=== PATIENT | male | born 1955 | race Caucasian/White ===

== ENCOUNTER 2020-09-07 22:07 | Inpatient (IN) | payer OTHER, SELFPAY ==
[2020-09-07] VITALS (14 sets, daily range): BP systolic 160–194; BP diastolic 89–110; PULSE 63–107; RESP 13–24; TEMP 36.4; O2SAT 91–96
--- NOTE | ~2020-09-07 | XR_ITS ---
EXAMINATION: XR chest 2V DATE: 09/07/2020 23:00 INDICATION: Midsternal chest pressure TECHNIQUE: PA and lateral views of the chest are obtained. COMPARISON: None available FINDINGS: There is a questionable opacity of the right midlung zone. Atelectasis is noted in the left lung base. There is no pleural effusion or pneumothorax. The cardiomediastinal silhouette is normal. There is mild thoracic spondylosis. IMPRESSION: 1. Possible opacity of the right midlung zone. Recommend further evaluation with CT of the chest. Reviewed, dictated and finalized at location A. IMPRESSION: 1. Possible opacity of the right midlung zone. Recommend further evaluation wit h CT of the chest.
--- NOTE | 2020-09-07 22:08 | ECG_ITS ---
Measurements Intervals [place] Rate: 102 P: 138 KS: 144 QRS: -11 QRSD: 82 T: -21 QT: 315 QTc: 410 Interpretive Statements ECTOPIC ATRIAL TACHYCARDIA POSSIBLE LEFT ATRIAL ENLARGEMENT LOW QRS VOLTAGE IN PRECORDIAL LEADS CONSIDER INFERIOR INFARCT, AGE INDETERMINATE BASELINE ARTIFACT- I, III, AVL, AVF, V1, V3-V6 ABNORMAL ECG Electronically Signed On 09-08-2020 7:31:08 CDT by Chuck Verdugo D.O.
--- NOTE | 2020-09-07 22:27 | PC.NURSE ---
pt here c significant other. reports chest pressure/pain x 15 min. after eating, that spontaneously went away on arrival in ED. reports this has happened before but no cardiology workup or known diagnosis. on monitoring manager. no s/s of distress at present.
[2020-09-07 22:33] LABS: Basophils Absolute Auto 0.1 K/mm3 (0.0-0.1); Basophils Percent Auto 0.5 % (0.2-1.2); Eosinophils Absolute Auto 0.2 K/mm3 (0-0.3); Eosinophils Percent Auto 1.8 % (0-4.4); Hematocrit 47.8 % (42.0-52.0); Hemoglobin 16.1 g/dL (14.0-18.0); Immature Granulocyte Absolute 0.05 K/mm3 (0.00-0.031); Immature Granulocyte Percent A 0.4 % (0-0.5); Lymphocytes Absolute Auto 4.94 K/mm3 (0.9-3.2); Mean Corpuscular HGB Conc 33.7 g/dl (32-36); Mean Corpuscular Hemoglobin 29.9 pg (26-34); Mean Corpuscular Volume 88.8 fl (80-100); Monocytes Absolute Auto 1.3 K/mm3 (0.1-0.6); Monocytes Percent Auto 9.8 % (2.6-8.5); Neutrophils Absolute Auto 6.4 K/mm3 (1.3-6.7); Neutrophils Percent Auto 49.5 % (45.5-73.1); Platelet Count Result 381 k/mm3 (150-375); Red Blood Count 5.38 M/mm3 (4.6-6.20); Red Cell Distribution Width 12.4 % (11.5-14.5)
[2020-09-07 22:42] LABS: INR 0.9; Prothrombin Time 12.2 Seconds (11.1-14.7)
[2020-09-07 22:43] LABS: Anion Gap 13 mmol/L (8-16); Blood Urea Nitrogen 18 mg/dL (9-20); Calcium 9.1 mg/dL (8.4-10.2); Carbon Dioxide 25 mmol/L (22-30); Chloride 104 mmol/L (98-107); Estimated CRCL calculation 62 ml/min; Estimated Glomerular Filt Rate > 60; Glucose 113 mg/dL (75-110); Sodium 142 mmol/L (137-145)
[2020-09-07 22:43] LABS: Partial Thromboplastin Time 28.6 SECONDS (22.3-36.8)
[2020-09-07 22:55] LABS: Troponin I 0.031 ng/mL (0.000-0.034)
--- NOTE | 2020-09-07 23:03 | ED.CHESTPAIN ---
HPI - Chest Pain General Chief Complaint: Chest Pain Stated Complaint: CHEST PAIN Time Seen by Provider: 09/07/20 22:32 History of Present Illness HPI narrative: Patient is a 64-year-old male who presents ER with chest pain. Reports this evening at 10 PM while leaving his brother's home he was walking to his car when he developed central chest pain/pressure without radiation. Is associated with shortness of breath. No radiation. He had to sit down for about 20 to 30 minutes to make discomfort resolved. Reports this occurred to him earlier in the day while mowing the lawn. He has had this happening intermittently over the last few months. Most recently he tried to go on a walk and cannot walk more than half block before having to stop. Symptoms are increasing in frequency, lasting longer in duration, and requiring less effort before asymptomatic. No history of heart disease. Related Data Home Medications Medication Instructions Recorded Confirmed No Home Medications 09/08/20 09/08/20 Allergies Allergy/AdvReac Type Severity Reaction Status Date / Time No Known Allergies Allergy Verified 09/07/20 22:22 Review of Systems Review of Systems: All systems reviewed & are unremarkable except as noted in HPI and below Constitutional: Constitutional: Denies chills, Denies fever(s) and Denies weakness ENT: Denies nasal congestion and Denies sore throat Cardiovascular: Cardiovascular: Reports chest pain, Denies rapid heart rate and Denies radiating jaw, neck or arm pain Respiratory: Respiratory: Denies cough, Reports dyspnea and Denies wheezing Gastrointestinal: Gastrointestinal: Denies abdominal pain, Denies nausea and Denies vomiting Musculoskeletal: Musculoskeletal: Denies back pain and Denies muscle cramps PMFSH Past Medical History Medical History (Updated 09/08/20 @ 06:53 by Yang Allen MD) COVID-19 vaccine series completed (~06/2020) Healthy adult male Surgical History Surgical History (Updated 09/07/20 @ 23:06 by Yang Allen MD) No history of previous surgery Family History Family History (Updated 09/08/20 @ 06:09 by Harriet Del Rio DO) Father Heart disease greater than 70 years old Mother Heart disease greater than 70 years old Social History Social History (Updated 09/08/20 @ 06:00 by Harriet Del Rio DO) Social History: he lives in [place] with his of 28 years. He has 2 step children. He does not have any biologic children. He works 3 different jobs. 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 He does a fair amount of traveling for his job. He smoked 1.5 packs of cigarettes per day for approximately 5-10 years but quit smoking in his 20s. He drinks 1 or 2 alcoholic beverages a week. He denies any illicit substance use. Primary care physician: Dr. Genaro Dos Santos code status: Full code surrogate decision maker: Smoking packs per day: 1.5 Smoking cigarettes per day: 30.0 Years smoked: 5 Smoking pack-years: 7.50 Smoking status: Former smoker Tobacco type: cigarettes Alcohol intake: current Drinks per week: 2 Substance use type: does not use Gender identity (if verbalized by the patient): Male Spiritual care concerns: No Exam Narrative: Exam Narrative: GENERAL: Well-appearing, well-nourished, and in no acute distress. HEAD: Normocephalic, atraumatic. CHEST: Clear to auscultation. No respiratory distress. HEART: Regular rate and rhythm. No murmur heard. Normal peripheral pulses. ABDOMEN: Soft, nontender, nondistended. EXTREMITIES: Normal range of motion. No edema. SKIN: Warm, dry, no rash. NEURO: Alert and oriented x3. PSYCH: Normal mood and affect. Course Course Emergency Course: Patient resting comfortably with no pain at this time. Significant current for acute coronary syndrome. Admit t
[2020-09-08] VITALS (22 sets, daily range): BP systolic 125–156; BP diastolic 78–97; PULSE 63–96; RESP 13–20; TEMP 36.1–36.6; O2SAT 91–99; BMI 31.8
[2020-09-08] MEDS: METOPROLOL TARTRATE 25 MG TABLET PO ×3 (00:07→21:17)
--- NOTE | 2020-09-08 01:08 | PM.IMHP ---
H&P: HPI History of Present Illness Date/Time: 09/08/20 01:08 Chief Complaint: chest pain Narrative: 64-year-old previously healthy male presents the ER with chest pain. The patient began having chest pain around 30 minutes prior to coming to the ER. He was walking to his car when he developed central chest pressure and pain. It was associated with shortness of breath. It resolved after he had sat down for approximately 20-30 minutes. the pain is pressure-like in nature in of 4/10 in severity. The patient reports that he has noticed that over the last 1.5 months so he has had multiple similar symptoms. he reports that as time has gone on it is required less activity to instigate the chest pressure. Sometimes the chest pressure is accompanied by pain radiating down the back of his left arm that is aching in nature. Earlier in the day the patient had been mowing the lawn with deep power assist push mower when he developed central chest pressure. His symptoms are occurring more frequently, With lesser exertion and lasting longer in duration. When he arrived to the ER his blood pressures were markedly elevated 194/104. However they had improved down to the 140s prior to antihypertensives being given. He has not checked his blood pressure in several years. He denies a known history of hypertension. He has not seen a physician in approximately 4 years. He is in the process of becoming established with Dr. Dos Santos. He has his 1st appointment in October. Review of Systems Review of Systems: Narrative: 12 systems were reviewed with pertinent positives and negatives per HPI. Except as documented in the HPI, all other systems were reviewed and are negative. [facility] Past Medical History Medical History (Updated 09/08/20 @ 05:54 by Harriet Del Rio DO) COVID-19 vaccine series completed (~06/2020) Healthy adult male Surgical History Surgical History (Updated 09/07/20 @ 23:06 by Yang Allen MD) No history of previous surgery Family History Family History (Updated 09/08/20 @ 01:30 by Kesha Siu RN) Father Heart disease Mother Heart disease Social History Social History (Updated 09/08/20 @ 06:00 by Harriet Del Rio DO) Social History: he lives in [place] with his of 28 years. He has 2 step children. He does not have any biologic children. He works 3 different jobs. 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 He does a fair amount of traveling for his job. He smoked 1.5 packs of cigarettes per day for approximately 5-10 years but quit smoking in his 20s. He drinks 1 or 2 alcoholic beverages a week. He denies any illicit substance use. Primary care physician: Dr. Genaro Dos Santos code status: Full code surrogate decision maker: Smoking packs per day: 1.5 Smoking cigarettes per day: 30.0 Years smoked: 5 Smoking pack-years: 7.50 Smoking status: Former smoker Tobacco type: cigarettes Alcohol intake: current Drinks per week: 2 Substance use type: does not use Gender identity (if verbalized by the patient): Male Spiritual care concerns: No Meds Home Medications and Allergies Home Medications Medication Instructions Recorded Confirmed Type No Home Medications 09/08/20 09/08/20 History Allergies Allergy/AdvReac Type Severity Reaction Status Date / Time No Known Allergies Allergy Verified 09/07/20 22:22 Vital Signs Vital Signs - 24 hr 09/07/20 22:09 09/07/20 22:20 09/07/20 22:25 Temperature 97.6 F Pulse Rate 103 H 63 105 H Respiratory Rate 18 18 Blood Pressure 194/104 H Pulse Oximetry 94 94 09/07/20 22:26 09/07/20 22:33 09/07/20 22:45 Temperature Pulse Rate 103 H 104 H Respiratory Rate 17 20 17 Blood Pressure 175/103 H Pulse Oximetry 96 91 09/07/20 22:46 09/07/20 22:58 09/07/20 23:00 Temperature Pu
--- NOTE | 2020-09-08 01:16 | ADMGEN ---
This patient, Dakotah Mata, was admitted to IMU Room 203-01. Patient/family oriented to hospital policies and general routines including ID bracelet, bed and alarms, visiting hours, pain management, procedures, bathroom and other care routines, personal items, smoking policy, room service/diet, and visiting hours. Information on how to activate the Rapid Response Team has been discussed. Patient/Family are encouraged to report perceived risks to care and to ask questions if they do not understand what they are told or what they should do. Report from Kath ESPINOSA arrived approx [phone]
--- NOTE | 2020-09-08 01:52 | PC.NURSE ---
During admission pt asked about our visitor policy and when cardiology would round. He was angry that visitor policy should not apply to him that he was going to be taking it to administration cause his should be allowed up at whatever time the doctors come through. I retold him our visitor policy and stated that if they came through when she wasn't here he welcome to call her on the phone so she could ask questions to but he was angry and aggressive through the rest of the admission process cause he would be taking this to administration.
[2020-09-08] MEDS: ENOXAPARIN 100 MG/ML SYRINGE 90 MG SUB-Q ×3 (02:58→21:16)
[2020-09-08 03:09] LABS: Cholesterol 305 mg/dL (0-200); HDL Direct 37 mg/dL
[2020-09-08 03:19] LABS: LDL Cholesterol Direct 151 mg/dL
[2020-09-08 04:06] LABS: Triglycerides 666 mg/dL (<150)
[2020-09-08] MEDS: ASPIRIN 81 MG ENTERIC TABLET PO (09:12)
[2020-09-08] MEDS: ATORVASTATIN 40 MG TABLET PO (09:12)
--- NOTE | 2020-09-08 10:31 | PM.CNCAR ---
Assessment and Plan Additional Plan 64-year-old man with: Acute coronary syndrome / non ST elevation [place] asymptomatic after about 1 hour of chest pain last evening the pain resolved without specific treatment right as he was arriving in the emergency department. For the most time being he is receiving aspirin anticoagulation beta-dharmesh and statin and seems to be quite stable. I told the patient and his the clearly he has sustained a myocardial infarction and in this situation I would recommend arranging for a coronary angiogram to be done. He understands this and I believe is generally agreeable but is expressing significant concern regarding his insurance. He is not sure but he believes his insurance does not have [facility] or the [facility] group in their network. If that is the case he is interested in transfer to a hospital that is in network. Obviously I told him that this is a situation that his telephonic case manager can clarify. If he stays at [facility] I will arrange for angiography on Wednesday since obviously this is the 08 of September holiday. If he becomes clinically unstable we can proceed urgently of course López Khan MD [facility] History of Present Illness History of Present Illness Consult date/time: 09/08/20 10:31 Consult reason: chest pain Reason For Visit: chest pain Narrative: this is a 64-year-old man that I am seeing in the hospital this morning following obvious evidence of a myocardial infarction having occurred yesterday evening. He states he has had no previous knowledge of anything being wrong with his heart and was frankly a bit surprised when I and outs the news that he had sustained a myocardial infarction. He states that he has been noticing problems or at least symptoms with exertional chest discomfort for at least 3-6 months. The discomfort was not particularly severe or alarming to him and he did not seek medical attention for this. He actually has not seen a physician for regular care and a number of years he has an appointment to see 1 of the PCP physicians in the [facility] group later in the summer but that appointment has not occurred yet. The patient states that he has noticed several more significant episodes of exertional chest discomfort in the low left last several days. He had 1 episode the day before coming in while he was mowing the lawn he states there is a significant heel on his property and pushing the more up the hill provoked some retrosternal chest pain and dyspnea which Mariano new was a concern so he stopped his activities with within a few minutes he was asymptomatic. Last evening he and his went out to dinner with some friends at their home they had a relatively large meal and after the meal they were relaxing and he began to experience similar symptoms while he was at rest. He we could tell that his friends could detect that he was in some distress he shared his symptoms he sat down on the porch in front of the house to try to get some relief of this and the symptoms were not resolving so the decision was to come to the emergency room here for evaluation. Interestingly he states soon as he arrived in the emergency room and sat in a chair he felt much better the symptoms resolved before he received any treatment and he was asymptomatic since then. His electrocardiogram was done his lab work was done in the emergency room 1st troponin levels were negative and he was admitted for further evaluation. His troponin levels have been done 4 times actually have risen significantly the last 1 was up to 14. I was then notified of the consult to come and see him. He is asymptomatic feels well and has no complaints. So far he has been receiving treatment with aspirin, Lovenox, beta-dharmesh and atorvastatin. He offers no other complaints at this time and states he has been fortunately was experiencing very good health his entire life. Review of Systems Constitutional: Constituti
--- NOTE | 2020-09-08 14:54 | PM.IMPN ---
Progress Note: A&P Assessment and Plan (1) Non-STEMI (non-ST elevated myocardial infarction): Code(s): I21.4 - Non-ST elevation (NSTEMI) myocardial infarction Status: Acute Assessment and Plan: STABLE CONTINUE TO MONITOR SUPPORTIVE CARE APPRECIATE CARDIOLOGY CONSULT Patient has been admitted to IMU with serial cardiac enzymes suggestive of non-STEMI. Patient has been started on therapeutic Lovenox, daily baby aspirin and beta-dharmesh. Cardiology has been consulted. The patient will likely need a cardiac catheterization in the near future. He is currently pain-free. Medical management has been initiated as discussed above. (2) Hypertension: Qualifiers: Hypertension type: primary hypertension Qualified Code(s): I10 - Essential (primary) hypertension Code(s): I10 - Essential (primary) hypertension Status: Acute Assessment and Plan: CONTINUE TO MONITOR I suspect the patient has previously untreated essential hypertension. Metoprolol has been initiated as discussed above. Monitor blood pressures closely. Additional Plan AWAITING INSURANCE TO [employer] PATIENT IS OUT OF NETWORK FURTHER TREATMENT MANAGEMENT UNLIKELY CARDIAC CATHETERIZATION Patient has been admitted as observation status. Subjective Date/time seen: 09/08/20 14:54 Exam Const: General: comfortable and no acute distress Other: Pleasant white male overweight comfortable cooperative in no distress. HENMT: Mouth: Yes moist mucous membranes Eyes: Sclera: sclerae normal Pupils: Equal, round and reactive pupils present Neck: Neck: supple and no JVD Thyroid: thyroid normal Other: No carotid bruits are audible normal normal carotid upstrokes Resp: Effort & Inspection: normal respiratory effort Auscultation: clear to auscultation bilaterally Cardio: Rate: regular rate Rhythm: regular rhythm Other: PMI nondisplaced and of normal activity no murmur no gallop no rub GI: Auscultation: normal bowel sounds Skin: General skin exam: normal color Neuro: Cranial nerves: Yes Equal, round and reactive pupils present Cognition (Neuro): normal cognition Extrem: General: normal to inspection Objective Data Vital Signs Vital Signs: Vital Signs - 24 hr 09/07/20 22:09 09/07/20 22:20 09/07/20 22:25 Temperature 97.6 F Pulse Rate 103 H 63 105 H Respiratory Rate 18 18 Blood Pressure 194/104 H Pulse Oximetry 94 94 09/07/20 22:26 09/07/20 22:33 09/07/20 22:45 Temperature Pulse Rate 103 H 104 H Respiratory Rate 17 20 17 Blood Pressure 175/103 H Pulse Oximetry 96 91 09/07/20 22:46 09/07/20 22:58 09/07/20 23:00 Temperature Pulse Rate 103 H 107 H Respiratory Rate 16 19 15 Blood Pressure 160/98 H 162/91 H Pulse Oximetry 95 95 92 09/07/20 23:01 09/07/20 23:21 09/07/20 23:33 Temperature Pulse Rate 107 H 102 H 100 Respiratory Rate 21 H 13 20 Blood Pressure 160/89 H Pulse Oximetry 93 94 93 09/07/20 23:46 09/07/20 23:48 09/08/20 00:00 Temperature Pulse Rate 102 H 103 H 94 Respiratory Rate 22 H 24 H 16 Blood Pressure 181/110 H Pulse Oximetry 92 94 91 09/08/20 00:07 09/08/20 00:15 09/08/20 00:16 Temperature Pulse Rate 96 93 93 Respiratory Rate 15 13 Blood Pressure 144/94 H Pulse Oximetry 95 94 09/08/20 00:57 09/08/20 01:05 09/08/20 02:00 Temperature 97.3 F L Pulse Rate 90 90 74 Respiratory Rate 18 18 Blood Pressure 138/87 156/97 H Pulse Oximetry 96 97 09/08/20 04:00 09/08/20 06:00 09/08/20 08:00 Temperature 97.9 F 97.4 F L Pulse Rate 76 71 75 Respiratory Rate 20 18 Blood Pressure 143/92 H 149/88 H Pulse Oximetry 99 98 09/08/20 10:00 09/08/20 12:00 09/08/20 12:05 Temperature 97.0 F L Pulse Rate 90 80 74 Respiratory Rate 20 Blood Pressure 143/94 H Pulse Oximetry 97 Intake/Output Intake/Output: Intake & Output 09/05/20 09/06/20
--- NOTE | 2020-09-08 15:41 | PC.NURSE ---
[facility] flyer was given to patient in cardiac admissions folder.
[2020-09-09] VITALS (15 sets, daily range): BP systolic 120–145; BP diastolic 59–89; PULSE 58–84; RESP 16–18; TEMP 36.1–36.6; O2SAT 95–100
[2020-09-09] MEDS: ATORVASTATIN 40 MG TABLET PO (09:15)
[2020-09-09] MEDS: ASPIRIN 81 MG ENTERIC TABLET PO (09:15)
[2020-09-09] MEDS: METOPROLOL TARTRATE 25 MG TABLET PO ×2 (09:15→21:11)
[2020-09-09] MEDS: ENOXAPARIN 100 MG/ML SYRINGE 90 MG SUB-Q ×2 (09:15→21:12)
--- NOTE | 2020-09-09 11:11 | PM.IMPN ---
Progress Note: A&P Assessment and Plan (1) Non-STEMI (non-ST elevated myocardial infarction): Code(s): I21.4 - Non-ST elevation (NSTEMI) myocardial infarction Status: Acute Assessment and Plan: STABLE CONTINUE TO MONITOR SUPPORTIVE CARE APPRECIATE CARDIOLOGY CONSULT Patient has been admitted to IMU with serial cardiac enzymes suggestive of non-STEMI. Patient has been started on therapeutic Lovenox, daily baby aspirin and beta-dharmesh. Cardiology has been consulted. The patient will likely need a cardiac catheterization in the near future. He is currently pain-free. Medical management has been initiated as discussed above. (2) Hypertension: Qualifiers: Hypertension type: primary hypertension Qualified Code(s): I10 - Essential (primary) hypertension Code(s): I10 - Essential (primary) hypertension Status: Acute Assessment and Plan: CONTINUE TO MONITOR I suspect the patient has previously untreated essential hypertension. Metoprolol has been initiated as discussed above. Monitor blood pressures closely. Additional Plan AWAITING INSURANCE TO [employer] PATIENT IS OUT OF NETWORK FURTHER TREATMENT MANAGEMENT UNLIKELY CARDIAC CATHETERIZATION Patient has been admitted as observation status. Subjective Date/time seen: 09/09/20 11:11 I FEEL WELL Review of Systems Constitutional: Constitutional: Denies chills and Denies fever(s) Eyes: Eyes: Denies change in vision ENT: Denies dizziness, Denies nasal congestion, Denies nasal discharge and Denies nasal obstruction Cardiovascular: Cardiovascular: Reports chest pain, Denies lightheadedness, Reports radiating jaw, neck or arm pain, Denies palpitations and Denies dyspnea Respiratory: Respiratory: Denies cough Gastrointestinal: Gastrointestinal: Denies diarrhea and Denies vomiting Genitourinary: Genitourinary: Reports no additional male genitourinary complaints Musculoskeletal: Musculoskeletal: Reports no additional musculoskeletal complaints Integumentary/Breasts: Skin/Breast: Reports system reviewed and no additional complaints, except as docu Neurologic: Reports system reviewed and no additional complaints, except as documented Psychiatric: Psychiatric: Reports no additional psychiatric complaints Endocrine: Endocrine: Reports no additional endocrine complaints Hematologic/Lymphatic: Hematologic/Lymphatic: Reports no additional hematologic/lymphatic complaints Allergic/Immunologic: Allergic/Immunologic: Reports no additional allergic/immunologic complaints Exam Const: General: comfortable and no acute distress Nutritional Appearance: average body habitus Orientation/consciousness: patient oriented x3 Other: Pleasant white male overweight comfortable cooperative in no distress. HENMT: Head: normal to inspection, normocephalic and atraumatic Ears: hearing grossly normal bilaterally Face and sinus: normal facial exam Mouth: Yes moist mucous membranes Eyes: General: appearance normal, both eyes and all related structures Sclera: sclerae normal Pupils: Equal, round and reactive pupils present EOM: EOMs intact bilaterally Neck: Neck: supple and no JVD Thyroid: thyroid normal Lymphatic: no lymphadenopathy noted Other: No carotid bruits are audible normal normal carotid upstrokes Resp: Effort & Inspection: normal respiratory effort Auscultation: clear to auscultation bilaterally Cardio: Jugular venous distension: no JVD Rate: regular rate Rhythm: regular rhythm Heart sounds: S1 normal heart sound present and S2 normal heart sound present Other: PMI nondisplaced and of normal activity no murmur no gallop no rub GI: GI Palp: Yes Soft to palpation and Yes No hepatosplenomegaly present Auscultation: normal bowel sounds : General: Yes deferred Skin: General skin exam: normal color Rashes: no rashes Wounds: no wounds Neuro: General:
--- NOTE | 2020-09-09 11:39 | PM.PNCARD ---
Progress Note: A&P Additional Plan 64-year-old man with non ST elevation [place] stable on medical therapy. anticipate left heart catheterization tomorrow and further recommendations following those results López Khan MD [facility] Subjective Date/time seen: date of service:09/09/20 11:39 Interval history: Follow-up visit in this 64-year-old man with: Coronary artery disease presenting with acute coronary syndrome / non ST elevation [place]. Patient did have history of recent onset of exertional anginal-type symptoms for a month or 2 prior to this event. He is clinically stable following admission on simple medical therapy. plans are in place for coronary angiography tomorrow morning. Exam Const: General: comfortable and no acute distress Other: Well-developed well-nourished gentleman a pleasant comfortable cooperative no apparent distress of any kind HENMT: Mouth: Yes moist mucous membranes Eyes: Sclera: sclerae normal Pupils: Equal, round and reactive pupils present Neck: Neck: supple and no JVD Resp: Effort & Inspection: normal respiratory effort Auscultation: clear to auscultation bilaterally Cardio: Rate: regular rate Rhythm: regular rhythm Other: no murmur no gallop GI: GI Palp: Yes Soft to palpation Auscultation: normal bowel sounds Neuro: Cognition (Neuro): normal cognition Extrem: General: normal to inspection Objective Data Vital Signs Vital Signs: Vital Signs - 24 hr 09/08/20 12:00 09/08/20 12:05 09/08/20 14:00 Temperature 36.1 C L Pulse Rate 80 74 71 Respiratory Rate 20 Blood Pressure 143/94 H Pulse Oximetry 97 09/08/20 16:00 09/08/20 17:25 09/08/20 18:00 Temperature 36.1 C L Pulse Rate 73 71 80 Respiratory Rate 20 Blood Pressure 125/78 Pulse Oximetry 97 09/08/20 19:52 09/08/20 20:00 09/08/20 21:17 Temperature 36.2 C L Pulse Rate 79 72 73 Respiratory Rate 18 Blood Pressure 142/81 H Pulse Oximetry 98 09/08/20 22:00 09/08/20 23:22 09/09/20 00:00 Temperature 36.3 C L Pulse Rate 64 63 58 L Respiratory Rate 20 Blood Pressure 135/88 Pulse Oximetry 99 09/09/20 02:00 09/09/20 04:00 09/09/20 06:00 Temperature 36.4 C Pulse Rate 60 61 58 L Respiratory Rate 18 Blood Pressure 135/69 Pulse Oximetry 100 09/09/20 08:00 09/09/20 09:15 09/09/20 10:00 Temperature 36.2 C L Pulse Rate 80 68 67 Respiratory Rate 16 Blood Pressure 136/89 Pulse Oximetry 96 Intake/Output Intake/Output: Intake & Output 09/06/20 09/07/20 09/08/20 09/09/20 23:59 23:59 23:59 23:59 Intake Total 600 360 Output Total 300 Balance 300 360 Meds/Results Medications: Active Medications Generic Name Dose Route Start Last Admin Trade Name Freq PRN Reason Stop Dose Admin Acetaminophen 650 mg 09/07/20 23:33 Acetaminophen 325 Mg Tablet PO Q4H PRN Mild Pain (1-3) or Fever Hydrocodone Bitart/Acetaminophen 1 tab 09/07/20 23:33 Hydrocodone/Acetaminophen (*Crx) 5-325 Mg Tablet PO Q4H PRN Pain Rated 4-6 Aspirin 81 mg 09/08/20 09:00 09/09/20 09:15 Aspirin 81 Mg Enteric Tablet PO 81 mg QAM FLYNN Administration Atorvastatin Calcium 40 mg 09/08/20 09:00 09/09/20 09:15 Atorvastatin 40 Mg Tablet PO 40 mg DAILY FLYNN Administration Enoxaparin Sodium 90 mg 09/08/20 02:50 09/09/20 09:15 Enoxaparin 100 Mg/Ml Syringe SUB-Q 90 mg Q12HR FLYNN Administration Metoprolol Tartrate 25 mg 09/08/20 09:00 09/09/20 09:15 Metoprolol Tartrate 25 Mg Tablet PO 25 mg Q12HR FLYNN Administration Morphine Sulfate 4 mg 09/07/20 23:33 Morphine Sulfate (*Crx) 4 Mg/Ml Inj IV PUSH Q2H PRN Pain Rated 7-10 Ondansetron HCl 4 mg 09/07/20 23:33 Ondansetron Inj 4 Mg/2 Ml Vial IV PUSH Q4H PRN Nausea Radiology Results: ITS Impressions Chest X-Ray 09/08/20 08:24 IMPRESSION: 1. Possible opacity of the right midlung zone. Recommend further evaluation with CT
[2020-09-10] VITALS (25 sets, daily range): BP systolic 116–144; BP diastolic 66–93; PULSE 58–97; RESP 13–18; TEMP 35.9–37; O2SAT 94–99
[2020-09-10] MEDS: ASPIRIN 81 MG ENTERIC TABLET PO (08:20)
[2020-09-10] MEDS: METOPROLOL TARTRATE 25 MG TABLET PO ×2 (08:20→20:13)
[2020-09-10] MEDS: ATORVASTATIN 40 MG TABLET PO (08:20)
--- NOTE | 2020-09-10 08:26 | WPDMODSED ---
Moderate Sedation Note-Pt Data Patient Data Diagnosis: non ST-elevation [place] Present Complaint: this is a 64-year-old man who came to the hospital with a several month history of exertional anginal-type symptoms. This culminated in a severe episode of chest pain that was associated with a significant troponin rise to 14. ECG did not show any diagnostic changes. In this setting an angiogram has been recommended. Procedure to be performed/Plan: Left heart catheterization Allergies Allergy/AdvReac Type Severity Reaction Status Date / Time No Known Allergies Allergy Verified 09/07/20 22:22 Home Medications Medication Instructions Recorded Confirmed Type No Home Medications 09/08/20 09/08/20 History Current Medications: Active Medications Acetaminophen (Acetaminophen 325 Mg Tablet) 650 mg PO Q4H PRN PRN Reason: Mild Pain (1-3) or Fever Hydrocodone Bitart/Acetaminophen (Hydrocodone/Acetaminophen (*Crx) 5-325 Mg Tablet) 1 tab PO Q4H PRN PRN Reason: Pain Rated 4-6 Aspirin (Aspirin 81 Mg Enteric Tablet) 81 mg PO QAM [facility] Last Admin: 09/10/20 08:20 Dose: 81 mg Documented by: Atorvastatin Calcium (Atorvastatin 40 Mg Tablet) 40 mg PO DAILY [facility] Last Admin: 09/10/20 08:20 Dose: 40 mg Documented by: Enoxaparin Sodium (Enoxaparin 100 Mg/Ml Syringe) 90 mg SUB-Q Q12HR [facility] Last Admin: 09/09/20 21:12 Dose: 90 mg Documented by: Metoprolol Tartrate (Metoprolol Tartrate 25 Mg Tablet) 25 mg PO Q12HR [facility] Last Admin: 09/10/20 08:20 Dose: 25 mg Documented by: Morphine Sulfate (Morphine Sulfate (*Crx) 4 Mg/Ml Inj) 4 mg IV PUSH Q2H PRN PRN Reason: Pain Rated 7-10 Ondansetron HCl (Ondansetron Inj 4 Mg/2 Ml Vial) 4 mg IV PUSH Q4H PRN PRN Reason: Nausea Sedation/Anesthesia: No previous sedation/anesthesia problems (including family history). [facility] Past Medical History Medical History (Updated 09/08/20 @ 06:53 by Yang Allen MD) COVID-19 vaccine series completed (~06/2020) Healthy adult male Surgical History Surgical History (Updated 09/07/20 @ 23:06 by Yang Allen MD) No history of previous surgery Family History Family History (Updated 09/08/20 @ 06:09 by Harriet Del Rio DO) Father Heart disease greater than 70 years old Mother Heart disease greater than 70 years old Social History Social History (Updated 09/08/20 @ 06:00 by Harriet Del Rio DO) Social History: he lives in [place] with his of 28 years. He has 2 step children. He does not have any biologic children. He works 3 different jobs. 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 He does a fair amount of traveling for his job. He smoked 1.5 packs of cigarettes per day for approximately 5-10 years but quit smoking in his 20s. He drinks 1 or 2 alcoholic beverages a week. He denies any illicit substance use. Primary care physician: Dr. Genaro Dos Santos code status: Full code surrogate decision maker: Smoking packs per day: 1.5 Smoking cigarettes per day: 30.0 Years smoked: 5 Smoking pack-years: 7.50 Smoking status: Former smoker Tobacco type: cigarettes Alcohol intake: current Drinks per week: 2 Substance use type: does not use Gender identity (if verbalized by the patient): Male Spiritual care concerns: No Mod Sed Physical Exam Physical Exam Pre Procedural Exam: Normal: Neck, Throat, Airway, Lungs, Heart Size, Heart Rate, Heart Rhythm, Neuro Exam and Extremities and Variation: Appearance ( pleasant overweight gentleman no distress) Hours since solid foods: 12 Hours since liquid intake: 12 Mallampati Classification: class II Internal Medicine - PN: Obj Da Vital Signs Vital Signs: Vital Signs - 24 hr 09/09/20 09:15 09/09/20 10:00 09/09/20 12:00 Temperature 36.6 C Pulse Rate 68 67 64 Respiratory Rate 16 Blood Pressure 128/85 Pulse Oxime
--- NOTE | 2020-09-10 09:08 | WPDCARDPROC ---
Cardiac Cath Procedure Note Date of procedure:: 09/10/20 Performing physician:: López Khan MD Indication:: acute coronary syndrome/ non ST elevation [place] Brief clinical history:: this is a 64-year-old man who presented over the weekend with a 2 to three-month history of exertional chest culminating some severe pain that occurred at rest following eating a large meal. He presented to the emergency room where he was rendered pain-free by aspirin, nitrates and anticoagulation. Troponin rise did go up 14. There were no diagnostic ECG changes. In this setting an angiogram has been recommended. Procedure Procedure performed:: Coronary angiography left ventriculography Angio-Seal to right femoral artery Sedation/Medication given:: fentanyl 50 mg Versed 2 mg case start 845 a.m. case end time 9:03 a.m. sedation provided by Arielle Walker RN, trained observer Access site:: right femoral artery Estimated blood loss:: 10-15 cc Procedure note:: patient was brought to the cardiac catheterization lab in the postabsorptive state the right femoral triangle was prepared and draped in the normal fashion. Anesthesia was provided with 1% lidocaine infiltrated locally. The femoral artery was then punctured and modified Seldinger technique and a 5 Frisian vascular sheath was placed. Left heart catheterization was then carried out. I 1st used a 5 Frisian angled pigtail catheter to study left-sided hemodynamics and injected LV g in the MCCOY projection. After this the pigtail catheter was withdrawn and replaced with a 5 Frisian FL4 catheter which was used to engage and inject the left coronary artery in multiple projections. Following this a 5 Frisian JR4 catheter was used to engage and inject the right coronary artery. The cine angiograms were then reviewed and the case was terminated. An angiogram was done of the femoral artery through the sheath after which an Angio-Seal device was deployed with a good hemostatic result. 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 Findings:: Hemodynamics: Central aortic pressure is 142 over 76 left ventricle 140 over 0 end-diastolic is 8 there is no gradient on pullback across the aortic valve. Left ventricle: The LV is normal in size wall of the left ventricle is severely hypodynamic to nearly akinetic the remainder of the LV contracts well the global ejection fraction appears to be 50-55%. The left main coronary artery is medium in caliber and significantly calcified. There appears to be an eccentric distal left main stenosis which to the not seen at all in some projections and in the WELSH projections appears to be about 60-70% distal left main soon stenosis. The left anterior descending is a medium caliber artery extending down to the apex the proximal near ostial segment of the LAD is 99% occluded with SHAUNA 2 flow distal to this. Distally the LAD appears to be a fairly large caliber vessel. The circumflex is a large caliber vessel giving rise to the marginal branches. The proximal circumflex has a 90% stenosis at or near the origin of a large 1st OM branch. The remainder of the circumflex has mild plaquing but no high-grade lesions are seen. The right coronary artery is dominant to the posterior circulation there appears to be total occlusion of the proximal RCA with bridging antegrade collaterals. These antegrade collaterals provide SHAUNA 1 flow into the distal right coronary artery. The the right coronary also receives left to right collateral filling via the LAD through the septals. Conclusion:: 1. Severe multivessel coronary disease with calcified left main which appears to have an eccentric a distal 60-70% stenosis. 2. Subtotal 99% stenosis of the proximal LAD 3. high-grade proximal 90% circumflex lesion 4. high-grade proximal RCA lesion which I believe is a chronic total occlusion with anteg
[2020-09-10] MEDS: SODIUM CHLORIDE 0.9% IV 1,000 ML 125 ML IV CONT (10:21)
--- NOTE | 2020-09-10 10:23 | SUR.PHASEII ---
Patient transported back to rm 203 via bed. PETTY RN and JESÚS Isbell assessed patient's groin and peripheral pulse together at bedside. Patient and updated on plan of care and verbalize understanding.
--- NOTE | 2020-09-10 12:36 | PM.TDS ---
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 Anticipated date of transfer: 09/10/20 DS: Admitting Diagnosis Admitting Diagnosis Admitting Diagnosis: (1) Non-STEMI (non-ST elevated myocardial infarction): Code(s): I21.4 - Non-ST elevation (NSTEMI) myocardial infarction Status: Acute Assessment and Plan: Patient has been admitted to IMU with serial cardiac enzymes suggestive of non-STEMI. Patient has been started on therapeutic Lovenox, daily baby aspirin and beta-dharmesh. Cardiology has been consulted. The patient will likelyneed a cardiac catheterization in the near future. He is currently pain-free. Medical management has been initiated as discussed above. (2) Hypertension: Qualifiers: Hypertension type: primary hypertension Qualified Code(s): I10 - Essential (primary) hypertension Code(s): I10 - Essential (primary) hypertension Status: Acute Assessment and Plan: I suspect the patient has previously untreated essential hypertension. Metoprolol has been initiated as discussed above. Monitor blood pressures closely. DS: Discharge Diagnosis Discharge Diagnosis (1) Non-STEMI (non-ST elevated myocardial infarction): Code(s): I21.4 - Non-ST elevation (NSTEMI) myocardial infarction Status: Acute Assessment and Plan: STABLE CONTINUE TO MONITOR SUPPORTIVE CARE APPRECIATE CARDIOLOGY CONSULT Patient has been admitted to IMU with serial cardiac enzymes suggestive of non-STEMI. Patient has been started on therapeutic Lovenox, daily baby aspirin and beta-dharmesh. Cardiology has been consulted. The patient will likely need a cardiac catheterization in the near future. He is currently pain-free. Medical management has been initiated as discussed above. (2) Hypertension: Qualifiers: Hypertension type: primary hypertension Qualified Code(s): I10 - Essential (primary) hypertension Code(s): I10 - Essential (primary) hypertension Status: Acute Assessment and Plan: CONTINUE TO MONITOR I suspect the patient has previously untreated essential hypertension. Metoprolol has been initiated as discussed above. Monitor blood pressures closely. Transfer Discharge Sum: Med Medications Active and Home Medications: Home Medications No Home Medications 09/08/20 [History Confirmed 09/08/20] Active Medications Acetaminophen (Acetaminophen 325 Mg Tablet) 650 mg PO Q4H PRN PRN Reason: Mild Pain (1-3) or Fever Hydrocodone Bitart/Acetaminophen (Hydrocodone/Acetaminophen (*Crx) 5-325 Mg Tablet) 1 tab PO Q4H PRN PRN Reason: Pain Rated 4-6 Aspirin (Aspirin 81 Mg Enteric Tablet) 81 mg PO QAM [facility] Last Admin: 09/10/20 08:20 Dose: 81 mg Documented by: Atorvastatin Calcium (Atorvastatin 40 Mg Tablet) 40 mg PO DAILY [facility] Last Admin: 09/10/20 08:20 Dose: 40 mg Documented by: Heparin Sodium (Porcine) (Heparin Sodium 5,000 Units/Ml Vial) 0 units IV PUSH PRN PRN PRN Reason: aPTT less than 55 seconds Heparin Sodium (Porcine) (Heparin Sodium 5,000 Units/Ml Vial) 0 units IV PUSH PRN PRN PRN Reason: aPTT 55 - 70 seconds Heparin Sodium (Porcine) (Heparin Sodium 5,000 Units/Ml Vial) 4,000 units IV PUSH ONCE ONE Stop: 09/10/20 12:28 Sodium Chloride (Normal Saline Iv) 1,000 mls @ 125 mls/hr IV CONT .Q8H ONE Stop: 09/10/20 17:05 Last Admin: 09/10/20 10:21 Dose: 125 mls/hr Documented by: Heparin Sodium/Dextrose (Heparin Sodium/D5w 100 Units/Ml) 25,00
[2020-09-10 13:11] LABS: Basophils Percent Auto 0.5 % (0.2-1.2); Eosinophils Absolute Auto 0.1 K/mm3 (0-0.3); Eosinophils Percent Auto 1.1 % (0-4.4); Hematocrit 45.7 % (42.0-52.0); Immature Granulocyte Absolute 0.04 K/mm3 (0.00-0.031); Immature Granulocyte Percent A 0.5 % (0-0.5); Lymphocytes Percent Auto 29.6 % (18.3-44.2); Mean Corpuscular HGB Conc 32.8 g/dl (32-36); Mean Corpuscular Hemoglobin 29.4 pg (26-34); Mean Corpuscular Volume 89.4 fl (80-100); Mean Platelet Volume 9.9 fl (7.4-10.4); Monocytes Absolute Auto 0.7 K/mm3 (0.1-0.6); Monocytes Percent Auto 8.7 % (2.6-8.5); Neutrophils Absolute Auto 5.1 K/mm3 (1.3-6.7); Neutrophils Percent Auto 59.6 % (45.5-73.1); Platelet Count Result 336 k/mm3 (150-375); Red Blood Count 5.11 M/mm3 (4.6-6.20); Red Cell Distribution Width 12.3 % (11.5-14.5); White Blood Count 8.5 K/mm3 (4.5-10.0)
[2020-09-10 13:23] LABS: INR 0.9; Partial Thromboplastin Time 30.1 SECONDS (22.3-36.8); Prothrombin Time 12.2 Seconds (11.1-14.7)
[2020-09-10] MEDS: HEPARIN SODIUM 5,000 UNITS/ML VIAL 4000 UNITS IV PUSH ×2 (13:34→20:13)
[2020-09-10] MEDS: HEPARIN SOD/D5W 100 UNITS/ML 25,000 UNITS/250 ML BAG 9 UNITS IV CONT (13:35)
[2020-09-10 20:03] LABS: Partial Thromboplastin Time 41.9 SECONDS (22.3-36.8)
[2020-09-10] MEDS: ACETAMINOPHEN 325 MG TABLET 650 MG PO (20:12)
[2020-09-11] VITALS: BP 140/98; PULSE 65; PULSE 70; RESP 20; TEMP 36.6; O2SAT 98
--- NOTE | 2020-09-11 01:46 | PC.NURSE ---
Pt left with Flite at approx 0130. notified and U nurse mary called
== END 2020-09-11 01:30 | disposition short-term general hospital (02) | DRG 282 ==
LOC: ANHED 22:46 → ANHIMU 23:44
PROVIDERS: Nurse Practitioner; Specialist; Admitting Provider Internal Medicine; Emergency Provider Emergency Medicine; Visit Provider Internal Medicine
PROC: 4A023N7 Measurement of Cardiac Sampling and Pressure, Left Heart, Percutaneous Approach (ICD-10-PCS; CPT 93452; principal; 2020-09-10 09:00)
PROC: 4A023N7 Measurement of Cardiac Sampling and Pressure, Left Heart, Percutaneous Approach (ICD-10-PCS; 2020-09-10 09:00)
DX: I21.4 Non-ST elevation (NSTEMI) myocardial infarction (principal); I25.10 Atherosclerotic heart disease of native coronary artery without angina pectoris; I10 Essential (primary) hypertension; Z87.891 Personal history of nicotine dependence
CPT/HCPCS: 36415; 71046; 80048; 80061; 84484; 85025; 85610; 85730; 93005; 93458; 96372; 99285; A9270; C1760; C1887; C1894; G0269; G0378; J1644; J1650; J2250; J3010; J7030; J7040

== ENCOUNTER → 2020-12-24 05:52 | Outpatient (CLI) | payer OTHER, SELFPAY ==
[2020-12-25 19:26] LABS: SARS-CoV-2 RNA PCR Negative
== END ==
PROVIDERS: PCP Family Medicine; Visit Provider Nurse Practitioner Family
DX: Z20.822 Contact with and (suspected) exposure to COVID-19 (principal); R05.9 Cough, unspecified
CPT/HCPCS: C9803; U0003; U0005

== ENCOUNTER 2021-02-27 16:30 | Outpatient (RCR) | payer OTHER, SELFPAY ==
[2020-11-19 08:56] VITALS: PULSE 68
--- NOTE | 2020-11-25 10:04 | PCCPR ---
Absent Wes will be out of town for a [place] of [place] 11/27/20-12/04/20.
--- NOTE | 2020-12-23 07:53 | PCCPR ---
Absent today, not feeling well.
--- NOTE | 2020-12-24 13:56 | PCCPR ---
Wes called today, he is not feeling well and running a fever. He was COVID tested today and will be out the rest of the week and maybe out next week, depending on his results.
--- NOTE | 2021-01-08 07:32 | PCCPR ---
Pt balwinder, still traveling today and plans to return 01/09.
--- NOTE | 2021-02-10 18:54 | PCCPR ---
Extended Wes's dc date Wes had a delayed start in [facility] He was on visit 25 today and wanted to end before Jenaro. Dc date revised to 02/27/21.
== END 2021-02-27 17:35 | disposition home or self-care (01) ==
LOC: ANHCPREHAB 16:30
PROVIDERS: PCP Family Medicine
DX: Z95.1 Presence of aortocoronary bypass graft (principal)
CPT/HCPCS: 93798

== ENCOUNTER 2022-02-24 08:43 | Outpatient (CLI) | payer MEDICARE, SELFPAY ==
--- NOTE | ~2022-02-24 | US_ITS ---
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 History of myocardial infarction. Smoking history. TECHNIQUE: Grayscale, color Doppler, and pulsed Doppler images of the aorta and common iliac arteries were obtained. COMPARISON: None. FINDINGS: The proximal aorta measures 2.6 cm greatest sagittal dimension. The mid aorta measures 2.2 cm greates t sagittal dimension. The distal aorta measures 2.2 cm greatest sagittal dimension. The right common internal iliac artery measures 10 mm. The left common iliac artery measures 11 mm. IMPRESSION: 1. Normal caliber aorta without aneurysm. Reviewed, dictated and finalized at location A. AMATION WORKER
== END 2022-02-24 08:44 | disposition home or self-care (01) ==
PROVIDERS: PCP Family Medicine; Visit Provider Family Medicine
DX: Z13.6 Encounter for screening for cardiovascular disorders (principal)
CPT/HCPCS: 76706

== ENCOUNTER 2022-10-29 00:32 | Day surgery (SDC) | payer MEDICARE, SELFPAY ==
[2022-10-16 08:43] VITALS: BMI 31.3
[2022-10-29 11:03] VITALS: BP 151/96; PULSE 86; RESP 16; TEMP 36.4; O2SAT 100
[2022-10-29] MEDS: LACTATED RINGERS 1,000 ML 150 ML IV CONT (11:11)
--- NOTE | 2022-10-29 11:16 | WPDANESEPPF ---
Anes - Initial Pre Proc Eval Procedure: Operation Date: 10/29/22 12:30 Proposed Procedures p Colonoscopy - Noah Christianson MD Date/Time: 10/29/22 11:16 Surgeon: Noah Christianson MD Pre Op Diagnosis: other fecal abnormalities Patient Data Age: 66 Gender: M Height: 1.68 m Weight: 85.8 kg Last Vital Signs Temp 36.4 C L 10/29/22 11:03 Pulse 86 10/29/22 11:03 Resp 16 10/29/22 11:03 BP 151/96 H 10/29/22 11:03 Pulse Ox 100 10/29/22 11:03 O2 Del Method Room Air 10/29/22 11:03 Allergies Allergy/AdvReac Type Severity Reaction Status Date / Time No Known Allergies Allergy Verified 10/29/22 11:00 Home Medications Medication Instructions Recorded Confirmed Type aspirin 81 mg tablet,delayed 81 mg PO DAILY 10/21/20 10/29/22 History release metoprolol succinate 100 mg 100 mg PO DAILY 11/19/20 10/29/22 History tablet,extended release 24 hr atorvastatin 80 mg tablet 80 mg PO DAILY #30 tabs 07/31/21 10/29/22 Rx lisinopril 5 mg tablet 5 mg PO DAILY #90 tabs 10/19/22 10/29/22 Rx Patient hx anesthesia problems: none Family hx anesthesia problems: none Results Review: All pre-operative results and documents have been reviewed as part of the pre-operative evaluation. [facility] Past Medical History Medical History (Updated 10/16/22 @ 15:00 by Genaro Dos Santos MD) CAD (coronary artery disease) COVID-19 vaccine series completed (~06/2020) Healthy adult male HLD (hyperlipidemia) Obesity Old [place] (myocardial infarction) Positive colorectal cancer screening using Cologuard test Surgical History Surgical History No history of previous surgery S/P CABG (coronary artery bypass graft) Family History Family History Father Heart disease greater than 70 years old Heart attack High cholesterol Mother Heart disease greater than 70 years old Cancer High cholesterol Social History Social History Social History: he lives in [place] with his of 28 years. He has 2 step children. He does not have any biologic children. He works 3 different jobs. 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 He does a fair amount of traveling for his job. He smoked 1.5 packs of cigarettes per day for approximately 5-10 years but quit smoking in his 20s. He drinks 1 or 2 alcoholic beverages a week. He denies any illicit substance use. Primary care physician: Dr. Genaro Dos Santos code status: Full code surrogate decision maker: Years smoked: 10 Smoking status: Former smoker Tobacco type: cigarettes Alcohol intake: current Drinks per week: 2 Substance use type: does not use Living arrangements: with family Gender identity (if verbalized by the patient): Male Spiritual care concerns: No Anes - Eval Final PreProcedure Day of Procedure 10/29/22 11:16 Patient weight: obese Heart: regular rate and rhythm Lungs: clear to auscultation Airway: Mallampati scale class II Neurological: alert and oriented Last oral intake: >/= 8 hours ASA classification: III Emergent: no Anesthetic plan: proceed Anesthesia type and monitoring: general GIVS and standard monitoring Results Review: All pre-operative results and documents have been reviewed as part of the pre-operative evaluation. Informed Consent: The patient's anesthetic plan and its attendant risks and benefits were discussed with the patient/family/POA. Questions were solicited and answers provided to the satisfaction of the patient/family/POA.
--- NOTE | 2022-10-29 11:40 | PM.HPGS ---
History of Present Illness History of Present Illness Consent: Risks, benefits, and alternatives have been discussed and questions answered. Patient agrees to proceed with procedure. Chief complaint: positive cologuard test Narrative: Dakotah Mata is a 66 year old male Presents for screening colonoscopy. Patient found to have positive Cologuard test patient's current weight appetite and bowel movements are normal. Patient denies abdominal pain. He has had no bleeding. Family history noncontributory. Review of Systems Review of Systems: Review of systems noncontributory. [facility] Past Medical History Medical History (Updated 10/16/22 @ 15:00 by Genaro Dos Santos MD) CAD (coronary artery disease) COVID-19 vaccine series completed (~06/2020) Healthy adult male HLD (hyperlipidemia) Obesity [place] (myocardial infarction) Positive colorectal cancer screening using Cologuard test Surgical History Surgical History No history of previous surgery S/P CABG (coronary artery bypass graft) Family History Family History Father Heart disease greater than 70 years old Heart attack High cholesterol Mother Heart disease greater than 70 years old Cancer High cholesterol Social History Social History Social History: he lives in [place] with his of 28 years. He has 2 step children. He does not have any biologic children. He works 3 different jobs. 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 He does a fair amount of traveling for his job. He smoked 1.5 packs of cigarettes per day for approximately 5-10 years but quit smoking in his 20s. He drinks 1 or 2 alcoholic beverages a week. He denies any illicit substance use. Primary care physician: Dr. Genaro Dos Santos code status: Full code surrogate decision maker: Years smoked: 10 Smoking status: Former smoker Tobacco type: cigarettes Alcohol intake: current Drinks per week: 2 Substance use type: does not use Living arrangements: with family Gender identity (if verbalized by the patient): Male Spiritual care concerns: No Meds Home Medications and Allergies Home Medications Medication Instructions Recorded Confirmed Type aspirin 81 mg tablet,delayed 81 mg PO DAILY 10/21/20 10/29/22 History release metoprolol succinate 100 mg 100 mg PO DAILY 11/19/20 10/29/22 History tablet,extended release 24 hr atorvastatin 80 mg tablet 80 mg PO DAILY #30 tabs 07/31/21 10/29/22 Rx lisinopril 5 mg tablet 5 mg PO DAILY #90 tabs 10/19/22 10/29/22 Rx Allergies Allergy/AdvReac Type Severity Reaction Status Date / Time No Known Allergies Allergy Verified 10/29/22 11:00 Vital Signs Vital Signs - 24 hr 10/29/22 11:03 Temperature 97.5 F L Pulse Rate 86 Respiratory Rate 16 Blood Pressure 151/96 H Pulse Oximetry 100 Oxygen Delivery Room Air Exam Narrative: Physical exam reveals patient to be alert. Vital signs stable. HEENT exam is unremarkable. Patient is anicteric. Lungs are clear to auscultation and percussion. Heart is without murmur or extra sounds. Abdomen bowel sounds are present soft nontender with no organomegaly. Digital external rectal exam is normal. Assessment and Plan Assessment and plan (1) Positive colorectal cancer screening using Cologuard test: Code(s): R19.5 - Other fecal abnormalities Status: Acute Assessment and Plan: Patient presents for screening colonoscopy. Recent Cologuard test was positive. Further recommendations may be given after endoscopy.
[2022-10-29 12:51] VITALS: BP 116/71; PULSE 71; RESP 18; O2SAT 92
[2022-10-29 13:01] VITALS: BP 131/80; PULSE 64; RESP 15; O2SAT 93
[2022-10-29 13:11] VITALS: BP 134/77; PULSE 61; RESP 16; O2SAT 97
[2022-10-29 13:21] VITALS: BP 136/86; PULSE 62; RESP 19; O2SAT 98
== END 2022-10-29 13:42 | disposition home or self-care (01) ==
PROVIDERS: PCP Family Medicine; Visit Provider Internal Medicine Gastroenterology
PROC: 0DJD8ZZ Inspection of Lower Intestinal Tract, Via Natural or Artificial Opening Endoscopic (ICD-10-PCS; CPT 45378; principal; 2022-10-29 12:30)
DX: Z12.11 Encounter for screening for malignant neoplasm of colon (principal); D12.5 Benign neoplasm of sigmoid colon; K62.1 Rectal polyp; K64.8 Other hemorrhoids; K57.30 Diverticulosis of large intestine without perforation or abscess without bleeding; R19.5 Other fecal abnormalities; I25.10 Atherosclerotic heart disease of native coronary artery without angina pectoris; E78.5 Hyperlipidemia, unspecified; E66.9 Obesity, unspecified; Z68.30 Body mass index [BMI] 30.0-30.9, adult; Z79.82 Long term (current) use of aspirin; Z87.891 Personal history of nicotine dependence
CPT/HCPCS: 45385; 88305; J7120

== ENCOUNTER 2024-12-04 14:04 | Outpatient (CLI) | payer MEDICARE, SELFPAY ==
--- NOTE | ~2024-12-04 | XR_ITS ---
EXAMINATION: XR wrist RT w scaphoid, 12/04/2024 14:21 CDT HISTORY: M79.641 - Pain in right hand, RADIATES UP ARM, X 2 MONTHS COMPARISON: No comparisons available. Findings: No acute fracture or malalignment. No significant degenerative changes. Soft tissues unremarkable. Impression: No acute fracture or malalignment. Reviewed, dictated and finalized at location P. Impression: No acute fracture or malalignment.
--- NOTE | ~2024-12-04 | XR_ITS ---
EXAMINATION: XR finger 1st RT min 2V, 12/04/2024 14:21 CDT HISTORY: pain in right finger COMPARISON: No comparisons available. Findings: No acute fracture or malalignment. Moderate degenerative changes Soft tissues unremarkable. Impression: No acute fracture or malalignment. Reviewed, dictated and finalized at location P. Impression: No acute fracture or malalignment.
--- OUTSIDE RECORDS SUMMARY | 2024-12-04 14:40 | XMS_ITS | Clinical Summary ---
Author Organization [facility] Address [address] [place] [address] Phone Care Team Providers Care Senior Publications Specialist Name Role Phone Unavailable Primary Care Provider Unavailabl e Allergies No known active allergies Medications aspirin EC 81 MG Tablet Delayed Response Take 81 mg by mouth daily. Active Cyanocobalamin (VITAMIN B 12 PO) Take by mouth. Activ e ciprofloxacin (CILOXAN) 0.3 % SolutionIndicat ions:Acute diffuse otitis externa of right ear 4 drops to the right ear twice daily 5 mL 0 6 Active dexamethasone (DECADRON) 0.1 % SuspensionIndic ations:Acute diffuse otitis externa of right ear 4 DROPS TO THE RIGHT EAR TWICE DAILY 2 HOURS AFTER USING CIPROFLOXIN OP SOLUTION 5 mL 0 6 Active Family History Medical History Relation Name Comments Heart Disease Father Heart Surgery Father Heart Disease Mother Heart Surgery Mother Relation Name Status Comments Father Mother Alive Social History Tobacco Use Types Packs/Day Years Used Date Smoking Tobacco: Light Smoker Cigarettes Smokeless Tobacco: Never Alcohol Use Standard Drinks/Week Comments Yes 0 (1 standard drink = 0.6 oz pur e alcohol) Sex and Gender Information Value Date Recorded Sex Assigned at Not on file Legal Sex Male 2:40 PM CDT Gender Identity Not on file Sexual Orientation Not on file Last Filed Vital Signs Vital Sign Reading Time Taken Comments Blood Pressure 128/82 01/17/2016 9:42 AM 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 Pulse 68 01/17/2016 9:42 AM 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 Temperature 37.3 C (99.2 F) 12/18/2015 10:51 AM CDT Respiratory Rate 18 01/17/2016 9:42 AM 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 Oxygen Saturation 99% 12/18/2015 10:51 AM CDT Inhaled Oxygen Concentration - - Weight 87.1 kg (192 lb) 01/17/2016 9:42 AM 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 Height 170.2 cm (5' 7) 01/17/2016 9:42 AM 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 Body Mass Index 30.07 01/17/2016 9:42 AM 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 Plan of Treatment Health Maintenance Due Date Last Done Comments Hepatitis C Virus (HCV) Screening 1955 TdaP Immunization 1955 Cologuard 12/25/2000 Colonoscopy 12/25/2000 Colorectal Cancer Screening 12/25/2000 Immunochemical Fecal Occult Blood 12/25/2000 Pneumococcal Immunization (5 0+ years) (1 of 1 - PCV) 12/25/2005 Zoster Immunization (1 of 2) 12/25/2005 Influenza Immunization (#1) 2024 SARS-COV-2 Immunization ( season) 2024 02/04/2021, 07/25/2020, 06/27/2020 Respiratory Syncytial Virus (RSV) Immunization (Adult) (1 - 1-dose 75+ series) 12/25/2030 Hepatitis B Immunization Aged Out No longer eligible based on patient's age to complete this topic Human Papillomavirus (HPV) Immunization Aged Out No longer eligible b ased on patient's age to complete this topic Meningococcal Immunization (ACWY) Aged Out No longer eligible b ased on patient's age to complete this topic Rotavirus Immunization Aged Out No lo nger eligible based on patient's age to complete this topic
--- OUTSIDE RECORDS SUMMARY | 2024-12-04 14:41 | XMS_ITS | Clinical Summary ---
Author Organization [facility] Address [address] [facility] [place] [address] Care Team Providers Care Medicaid Billing Clerk Name Role Phone Genaro Dos Santos MD Primary Care Provider [phone] Source Comments [facility],non-owned Affiliates and Associated Physician Practices is amultiple site organization consisting of ambulatory clinics and hospital sitesin [place], [place], [place] and [place]. This disclosure is being madepursuant to the Care Everywhere program and may not contain all information available regarding this patient. Last updated 17.[employer] [facility] Allergies No known active allergies Medications * Be aware that medications may not be up to date on this document. Alwaysverify current medications with the patient. acetaminophen (TYLENOL) 500 MG tablet Take 500 mg by mouth every 4 hours as needed for Fever or Pain Maximum allowable Acetaminophen amount = 4 Grams (4000 mg) / 24 hours. Active aspirin (Aspirin) 81 MG chew tablet CHEW AND SWALLOW 1 TABLET BY MOUTH EVERY DAY 90 tablet 3 4 Active lisinopril (Prinivil; Zestril) 5 MG tablet Take 1 (one) tablet by mouth once daily 5 Active atorvastatin (Lipitor) 80 MG tablet TAKE 1 TABLET BY MOUTH AT BEDTIME 90 tablet 1 5 Active metoprolol succinate XL 24hr (Toprol XL) 50 MG tablet Take 1 (one) tablet by mouth 2 times daily 180 tablet 3 5 Active Active Problems Problem Noted Date Diagnosed Date Essential hypertension 04/25/2024 Assessment & Plan (04/25/2024 4:25 PM SOCIAL SERVICE DIRECTOR): Well-controlled. Continue lisinopril. As we are going to wean metoprolol, it is possible that his blood pressure would increase. I told him that he can double lisinopril if his blood pressure goes consistently above 140/90. Hyperlipidemia 09/12/2020 Assessment & Plan (04/25/2024 4:23 PM SOCIAL SERVICE DIRECTOR): He recently had blood work done by his primary physician. Results presumably is being transmitted here, although not available for review today. His prior lipid profile (more than 1-year-old) showed LDL cholesterol was less than a goal of 70. Therefore, I assume his LDL cholesterol will be well-controlled in the most recent blood work. Continue atorvastatin. I told the patient to transmit his blood work results to us. If his LDL cholesterol is above 100, I would add ezetimibe. Assessment & Plan (10/22/2020 11:17 AM CDT): Statin. FREDY/B, CRP and FLP in follow up. 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 Doing well in this regard, CCS class I symptoms. Impressively, he did not have LV systolic dysfunction. Therefore, based on emerging data, I think he should be able to try to wean beta-dharmesh. I told him to reduce to once per day, and after a few weeks reduce it further. Meanwhile, continue aspirin, statin, lisinopril (all of which plan for indefinite). Assessment & Plan (10/22/2020 11:19 AM CDT): SP CABG x3 September 2020. With Ac to lad, rsvg to OM and pda in sequential fashion Excision of left atrial appendage by Dr. Martinez. Post operative check done Will obtain OSH records, LHC/ECHO. Decrease ASA to 81mg daily, continue Lipitor 20mg daily, see HLD. Change metoprolol to 100mg xl at night. ECHO and follow up in [address] Barlow or Andrea. Cardiac rehab. Encounters Date Type Department Care Team Description 09/28/2024 Refill [facility] - Cardiology [address] [facility], [place] [address] [place] [address] Eb Billy MD MEDICATION REFILL from Last 3 Months Immunizations Immunization Administration Dates Next Due Covid Moderna primary monovalent 12+ yr 0.5mL ,06/27/2020 MODERNA SARS-COV-2 COVID-19 VACCINE 0.25ML 02/04 Family History Medical History Relation Name Comments CAD (Coronary Artery Disease) Father CAD (Coronary Artery Disease) Mother Relation Name Status Comments Father Mother Social History Tobacco Use Types Packs/Day Years Used Date Smoking Tobacco: Former Cigarettes 1 10 Smokeless Tobacco: Never Tobacco Cessation:Counseling Given: Not Answered Alcohol Use Standard Drinks/Week Comments Yes 2 (1 standard drink = 0.6 oz pur e alcohol) Sex and Gender Information Value Date Recorded Sex Assigned at Not on file Legal Sex Male 12:58 PM CDT Gender Identity Not on file Sexual Orientation Not on file Last Filed Vital Signs Vital Sign Reading Time Taken Comments Blood Pressure 120/84 04/25/2024 2:32 PM SOCIAL SERVICE DIRECTOR Pulse 60 04/25/2024 2:32 PM SOCIAL SERVICE DIRECTOR Temperature 36.6 C (97.8 F) 07/25/2021 8:31 AM CDT Respiratory Rate 24 09/16/2020 1:00 PM CDT Oxygen Saturation 97% 04/25/2024 2:32 PM SOCIAL SERVICE DIRECTOR Inhaled Oxygen Concentration 40% 09/11/2020 8 :00 PM CDT Weight 93.9 kg (207 lb) 04/25/2024 2:32 PM SOCIAL SERVICE DIRECTOR Height 167.6 cm (5' 6) 04/25/2024 2:32 PM SOCIAL SERVICE DIRECTOR Body Mass Index 33.41 04/25/2024 2:32 PM SOCIAL SERVICE DIRECTOR Plan of Treatment Upcoming Encounters Date Type Department Care Team (Late st Contact Info) Description 04/24/2025 3:00 PM SOCIAL SERVICE DIRECTOR Office Visit [facility] - Cardiology [address] [facility], [facility] [address] [place] [address] Eb Billy MD [address] [id number] [place] [phone] Health Maintenance Due Date Last Done Comments COLON MONITORING 1955 COLONOSCOPY - COLON CA SCREENING [address] CT COLONOGRAPHY - COLON CA SCREENING 1955 FIT - COLON CA SCREENING 1955 FLEX SIG - COLON CA SCREENING 1955 HEPATITIS C SCREENING 12/21/1973 DTAP/TDAP/TD VACCINES (1 - Tdap) 12/25/1974 PNEUMOCOCCAL VACCINE 50+ (1 of 1 - PCV) 12/25/2005 ZOSTER VACCINE (1 of 2) 12/25/2005 AAA SCREENING 12/25/2020 DEPRESSION SCREENING 03/08/2024 MEDICARE AWV CALENDAR YEAR 2024 SCREENING FOR DIABETES 04/25/2024 , 09/16/2020, 09/16/2020, Additional history exists COVID-19 VACCINE ( - 2024- season) 2024 02/04/2021, 07/25/2020, 06/27/2020 INFLUENZA VACCINE (#1) 2024 COLOGUARD (AGES 45-75) - COLON CA SCREENING 09/30/2025 09/30/2022 Colorectal Cancer Screening 09/30/2025 Respiratory Syncytial Virus (RSV) Vaccine Pt: or over 60 yrs (1 - 1-dose 75+ series) 12/25/2030 HEPATITIS B VACCINE Aged Out No longe r eligible based on patient's age to complete this topic HIB VACCINE Aged Out No longer eligi ble based on patient's age to complete this topic HPV VACCINE Aged Out No longer eligi ble based on patient's age to complete this topic MENINGOCOCCAL (Group B) VACCINE SHARED DECISION-MAKING Aged Out No longer eligible based on patient's age to complete this topic MENINGOCOCCAL GROUPS A/C/Y/W VACCINE Aged Out No longer eligible based on patient's age to complete this topic Procedures Procedure Name Priority Date/Time Associated Diagnosis Comments BASIC METABOLIC PANEL (CALCIUM TOTAL) Routine 09/26/2020 12:44 PM CDT S/P CABG (coronary artery bypass graft) from Last 3 Months or Most Recently Relevant to Health Maintenance Results * (ABNORMAL) BASIC METABOLIC PANEL (CALCIUM TOTAL) (09/26/2020 12:44 PM CDT) BUN 18 7 - 26 mg/dL 09/26/2020 1:25 PM [facility] Creatinine 1.10 0.71 - 1.16 mg/dL 09/26/2020 1:25 PM [facility] Sodium 141 136 - 145 mmol/L 09/26/2020 1:25 PM [facility] Potassium 5.2(H) 3.5 - 4.5 mmol/L 09/26/2020 1:25 PM [facility] Chloride 103 98 - 107 mmol/L 09/26/2020 1:25 PM [facility] CO2 30(H) 22 - 29 mmol/L 09/26/2020 1:25 PM [facility] Glucose 105 70 - 115 mg/dL 09/26/2020 1:25 PM [facility] Calcium 9.9 8.4 - 10.2 mg/dL 09/26/2020 1:25 PM [facility] Anion Gap 13 8 - 18 09/26/2020 1:25 PM [facility] BUN/Creatinine Ratio 16 7 - 23 09/26/2020 1:25 PM [facility] Osmolality Calculated 294 270 - 300 mOsm/kg 09/26/2020 1:25 PM [facility] eGFR by CKD-EPI 71(L) >=90 mL/min/1.7 3 m2 09/26/2020 1:25 PM [facility] Blood BLOOD SPECIMEN / Unknown Lab Venipuncture / Unknown 09/26/2020 12:44 PM CDT 09/26/2020 12:56 PM T us Taya Evangelista [employer]AG W[employer]-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
== END 2024-12-04 14:05 | disposition home or self-care (01) ==
PROVIDERS: PCP Family Medicine; Visit Provider Physician Assistant
DX: M79.644 Pain in right finger(s) (principal); M79.641 Pain in right hand; M65.4 Radial styloid tenosynovitis [de Quervain]
CPT/HCPCS: 73110; 73140